=== PATIENT | male | born 1935 | race Caucasian/White ===

== ENCOUNTER → 2017-04-17 | Outpatient (CLI) | payer MEDICARE, OTHER ==
--- NOTE | 2017-04-19 14:54 | MRI ---
EXAM DESCRIPTION: Lumbar Spine w/o Contrast CLINICAL HISTORY: 82 years, Male, LEG WEAKNESS right foot drop COMPARISON: None. FINDINGS: Sagittal and axial sequences. Bone marrow is normal signal characteristics. Conus terminates at about L2. Sagittal images show a bulging disc T11-12 asymmetric to the right impinging slightly on the exiting right T11 root. Benign-appearing right renal cyst is noted upper pole by 3.3 cm. Several small cysts on the left also noted. Multiple hypertrophic changes in the lumbar spine suggesting idiopathic hyperostosis. Bulging anterior disc present at multiple lumbar interspaces particularly L5-S1. T12-L1 shows narrowing with moderate bulging disc slightly asymmetric to left. Moderate bulging disc L1-2 asymmetric to the left with foraminal narrowing. Facet degenerative change perhaps slight impingement on the right lateral recess. At L2-3 narrowing about 2 mm of retrolisthesis with diffuse bulging disc asymmetric to the right with impingement on the exiting right L2 root. Facet degenerative change L3-4 narrowing with diffuse bulging disc extending the exit foramen bilaterally with probable bilateral foraminal narrowing. Facet degenerative change. Mild central stenosis. L4-5 narrowing with diffuse bulging disc and facet degenerative change. Bilateral foraminal narrowing on the right. Probable impingement on the exiting right L4 root L5-S1 narrowing and bulging disc asymmetric to the right with foraminal narrowing. About 1 mm retrolisthesis. IMPRESSION: 1. Multilevel disc disease throughout the lower thoracic prior lumbar spine as discussed above. 2. Changes probably most advanced L4-5 with narrowing and diffuse bulging disc. Bilateral foraminal narrowing. Impingement on the exiting right L4 root 3. Retrolisthesis L2-3 with bulging disc asymmetric to the right impinging on the exiting right L2 root. 4. Bulging disc and facet degenerative change L3-4. Bilateral foraminal narrowing. Mild central stenosis. Other findings as discussed above Electronically signed by: Parth Luna MD 04/19/2017 2:52 PM CDT
--- NOTE | 2017-04-19 15:03 | MRI ---
EXAM DESCRIPTION: Cervical Spine CLINICAL HISTORY: 82 years, Male, RADICULOPATHY right arm tingling COMPARISON: None. FINDINGS: Sagittal and axial sequences. Some motion artifact. Bone marrow is normal signal characteristics except for degenerative-type changes particularly C4-5. Cord is normal signal characteristics. C2-3 unremarkable. At C3-4 narrowing with about 1.5 mm of retrolisthesis. Diffuse bulging disc osteophyte, completely effacing the subarachnoid space and impinging directly on the cord centrally perhaps slightly asymmetric to the right. At C4-5 about 2 mm of retrolisthesis with left lateral protruding disc osteophyte about 2 mm flattening the left-sided thecal sac. At C5-6 left lateral protruding disc osteophyte almost completely effaces the subarachnoid space. Slight left foraminal narrowing. At C6-7 right lateral protruding disc osteophyte about 2 mm flattens right-sided thecal sac. Moderate disc space narrowing and facet degenerative change. At C7-T1 disc spaces within normal limits. IMPRESSION: 1. Severe disc disease in cervical spine from C3-4 through C6-7 2. At C3-4 retrolisthesis with bulging disc osteophyte effacing the subarachnoid space and impinging on the cord centrally and slightly to right. 3. Fairly severe disease C5-6 as well with left lateral protruding disc effacing the subarachnoid space, flattening and left-sided cord and narrowing the left exit foramen. 4. Right lateral protruding disc C6-7 flattens the central and right-sided thecal sac Electronically signed by: Parth Luna MD 04/19/2017 3:01 PM CDT
--- NOTE | 2017-04-19 15:21 | MRI ---
EXAM DESCRIPTION: Brain w/oContrast CLINICAL HISTORY: 82 years, Male, RIGHT SIDE WEAKNESS , tingling right arm right foot drop COMPARISON: None. FINDINGS: Standard triplanar sequences. Diffusion sequence does not show acute infarct. Gradient sequence does not show hemorrhage. Age-appropriate appearance of ventricles and sulci. Some minimal microcystic ischemic changes periventricular white matter. Mild ethmoid sinus mucosal thickening. Small amount of frontal sinus mucosal thickening also noted. IMPRESSION: No acute infarct hemorrhage or mass. Age-related changes Ventricles and sulci. Some minimal microischemic change periventricular white matter within normal limits. Mild paranasal sinus mucosal thickening. Electronically signed by: Parth Luna MD 04/19/2017 3:19 PM CDT
== END | disposition home or self-care (01) ==
LOC: MRI 10:13
PROVIDERS: ATTEND Family Medicine
DX: M21.371 Foot drop, right foot (principal); M50.10 Cervical disc disorder with radiculopathy, unspecified cervical region

== ENCOUNTER 2017-06-12 15:44 | Emergency (ER) | payer MEDICARE, OTHER ==
--- NOTE | 2017-06-12 16:57 | ED.PDOC ---
History of Present Illness - General Chief Complaint: General Stated Complaint: Elevated BP today. S/P neck surgery 06/08 Time Seen by Provider: 06/12/17 15:49 Source: patient Exam Limitations: no limitations - History of Present Illness Initial Comments: The patient is an 82-year-old male presenting to the emergency room secondary to feeling hot and checking his blood pressure at home and finding the systolic in the 170s. He is concerned about the blood pressure. He had no fever here. His blood pressures were lower here. He had recently had a cervical spine fixation by an anterior approach earlier this week and has been going through recovery. He was started on some prednisone today secondary to some swelling. There's been no evidence of infection. He has had some discomfort. He has diuresed significantly since the surgery. He is now back down almost to his baseline weight. He is not short of breath. No syncope. No new discomfort. He is mainly concerned with the blood pressure. Timing/Duration: momentarily Severity: mild Improving Factors: nothing Worsening Factors: nothing Allergies/Adverse Reactions: Allergies Penicillins Allergy (Verified 06/12/17 16:09) Home Medications: Ambulatory Orders Aspirin [Aspirin Adult Low Dose] 81 mg PO DAILY 06/12/17 Cholecalciferol [Vitamin D3] 1,000 unit PO DAILY 06/12/17 HYDROcodone 5MG/APAP 325MG [[place] 5/325] 1 tab PO Q4HR PRN 06/12/17 Lisinopril 10 mg PO DAILY 06/12/17 Lovastatin 20 mg PO DAILY 06/12/17 Methocarbamol [Robaxin] 750 mg PO Q6HR PRN 06/12/17 Prednisone 10 mg PO DAILY 06/12/17 Review of Systems - Review of Systems Constitutional: States: malaise EENTM: States: no symptoms reported Respiratory: States: no symptoms reported Cardiology: States: no symptoms reported Gastrointestinal/Abdominal: States: no symptoms reported, constipation - mild Genitourinary: States: no symptoms reported Musculoskeletal: States: neck pain Skin: States: no symptoms reported Neurological: States: no symptoms reported All other Systems: No Change from Baseline Past Medical History (General) - Patient Medical History Hx Stroke: No Hx Cardiac Disorders: Yes - Bigemeny Hx Congestive Heart Failure: No Hx Hypertension: Yes Hx Diabetes: No Hx Cancer: Yes - Prostate Hx Hepatitis C: No - Vaccination History Hx Tetanus, Diphtheria Vaccination: No Hx Influenza Vaccination: Yes Hx Pneumococcal Vaccination: Yes - Social History Hx Tobacco Use: No Hx Chewing Tobacco Use: No Hx Alcohol Use: Yes - Occas Hx Substance Use: No Hx Substance Use Treatment: No Hx Depression: No Feels Threatened In Home Enviroment: No Feels Threatened In a Relationship: No Hx Physical Abuse: No Hx Emotional Abuse: No Hx Suspected Abuse: No Family Medical History - Family History Grandparents Family History: Unknown Physical Exam - Physical Exam General Appearance: Alert, Anxious, No apparent distress Eye Exam: bilateral normal Ears, Nose, Throat: hearing grossly normal, normal ENT inspection, normal pharynx Neck: other - mild swelling to the anterior right neck around the surgical site. No significant erythema. No undue hheat. The wound does appear to be healing fairly well. 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 He is concerned about his blood pressure. The patient was monitored for a period of time and blood pressures have come down without any additional measures. He does understand his blood pressure will remain a little higher than baseline in this postsurgical state secondary to anxiety, discomfort and the prednisone. Additionally he is to take an over- the-counter stomach medication such as Prilosec, Prevacid or Pepcid while he is taking his additional new medications. Additionally he should take care not to get constipated on the hydrocodone. ER warnings were given. He should follow- up with his primary care doctor and spinal surgeon as previously scheduled. - EKG/XRAY/CT CT Ordered: No CT Interpretation Call Back: No Departure - Departure Clinical Impression: Hypertension Qualifiers: Hypertension type: other secondary hypertension Qualified Code(s): I15.8 - Other secondary hypertension Disposition: Discharge to Home or Self Care Condition: Fair Departure Forms: ED Discharge - Pt. Copy, Patient Portal Self Enrollment Instructions: High Blood Pressure Diet: regular diet Activity: increase activity as tolerated Referrals: Sebastian Hernandez MD [Primary Care Provider] - 1-2 Weeks Home Medications: Ambulatory Orders Aspirin [Aspirin Adult Low Dose] 81 mg PO DAILY 06/12/17 Cholecalciferol [Vitamin D3] 1,000 unit PO DAILY 06/12/17 HYDROcodone 5MG/APAP 325MG [[place] 5/325] 1 tab PO Q4HR PRN 06/12/17 Lisinopril 10 mg PO DAILY 06/12/17 Lovastatin 20 mg PO DAILY 06/12/17 Methocarbamol [Robaxin] 750 mg PO Q6HR PRN 06/12/17 Prednisone 10 mg PO DAILY 06/12/17 Additional Instructions: the patient is an 82-year-old male presenting less than a week after a cervical spine fixation procedure. He is concerned about his blood pressure. The patient was monitored for a period of time and blood pressures have come down without any additional measures. He does understand his blood pressure will remain a little higher than baseline in this postsurgical state secondary to anxiety, discomfort and the prednisone. Additionally he is to take an over- the-counter stomach medication such as Prilosec, Prevacid or Pepcid while he is taking his additional new medications. Additionally he should take care not to get constipated on the hydrocodone. ER warnings were given. He should follow- up with his primary care doctor and spinal surgeon as previously scheduled.
[2017-06-12 17:30] VITALS: BP 144/97; TEMP 98.2; O2SAT 94
== END 2017-06-12 17:25 | disposition home or self-care (01) ==
LOC: ER 15:44
DX: I15.8 Other secondary hypertension (principal); Z85.46 Personal history of malignant neoplasm of prostate; Z98.1 Arthrodesis status; Z88.0 Allergy status to penicillin; Z79.82 Long term (current) use of aspirin; Z79.899 Other long term (current) drug therapy

== ENCOUNTER → 2018-01-06 | Outpatient (CLI) | payer MEDICARE, OTHER | LOC: GMAJ 10:41 | PROVIDERS: ATTEND Family Medicine | DX: Z12.5 Encounter for screening for malignant neoplasm of prostate (principal) ==

== ENCOUNTER → 2018-01-22 | Outpatient (CLI) | payer MEDICARE ==
--- NOTE | 2018-01-23 09:54 | RAD ---
EXAM DESCRIPTION: Pelvis CLINICAL HISTORY: 82 years Male, PAIN IN RIGHT HIP COMPARISON: None. TECHNIQUE: Single AP x-ray view of pelvis and hips. FINDINGS: Degenerative changes are seen in the lower lumbar spine with severe disc space narrowing. Sacrum appears intact with no fracture. No fracture of the bones of the pelvic ring. No proximal femoral fracture or hip dislocation. Degenerative narrowing of the hip joints is seen medially. IMPRESSION: Negative for fracture. Electronically signed by: Sunny Krause MD 01/23/2018 9:52 AM CDT
--- NOTE | 2018-01-23 09:56 | RAD ---
EXAM DESCRIPTION: Knee,Right Complete CLINICAL HISTORY: 82 years, Male, PAIN IN RIGHT KNEE COMPARISON: None TECHNIQUE: Four views of the right knee with standing views FINDINGS: No fracture or dislocation. Bones appear normally mineralized with normal trabecular pattern. Narrowed appearance of lateral more than medial compartments on frontal view. Prominent lateral joint line spurring with spurring of the tibial spines. Lateral view shows normal position of the patella. There is narrowing of the patellofemoral joint with posterior patellar spurring and anterosuperior enthesopathy. Small suprapatellar knee joint effusion is present. Normal contour of quadriceps and patellar tendons. Ossific densities posterior to the joint could be loose bodies within a Acosta's cyst. No abnormal patellar tilt or subluxation on patellar sunrise view. Prominent posterior patellar spurring with mild anterior femoral trochlear spurring. IMPRESSION: Degenerative changes as described. Electronically signed by: Sunny Krause MD 01/23/2018 9:54 AM CDT
== END ==
LOC: RAD 08:53
PROVIDERS: ATTEND Orthopaedic Surgery
DX: M25.561 Pain in right knee (principal); M25.551 Pain in right hip

== ENCOUNTER 2019-09-14 06:35 | Emergency (ER) | payer MEDICARE, OTHER ==
[2019-09-14 06:55] VITALS: TEMP 97.6
--- NOTE | 2019-09-14 07:40 | RAD ---
EXAM DESCRIPTION: Chest,2 Views CLINICAL HISTORY: 84 years Male, SOB COMPARISON: None. Findings: Two views Cardiac silhouette and pulmonary vasculature are within normal limits. Atherosclerotic plaque in the thoracic aorta. No pneumothorax. No pleural effusion. Linear left basilar airspace disease. No acute osseous abnormality. Soft tissues are unremarkable. IMPRESSION: Linear left basilar airspace disease, atelectasis or pneumonia. Recommend repeat chest radiographs in six weeks. Electronically signed by: Angelito Dennis MD 09/14/2019 7:38 AM [facility]
--- NOTE | 2019-09-14 07:53 | ED.PDOC ---
History of Present Illness - General Chief Complaint: Respiratory Problem Stated Complaint: SOB x's 2 wks worse the "past few days", irreg HR Time Seen by Provider: 09/14/19 07:46 Source: patient, RN notes reviewed, Vital Signs reviewed, family - Exam Limitations: no limitations - History of Present Illness Initial Comments: patient is an 84-year-old white male who presents with complaints of worsening shortness of breath. Patient states this is ongoing and worsening over the last 2 weeks. The shortness of breath is worse with exertion.additionally he is more short of breath when he lies down flat. The shortness of breath is improved with rest or upright position. Complains of significant sinus drainage over the last 2 weeks. Patient does state he has some chest tightness with exertion, but no radiation of this tightness nor numbness nor nausea or vomiting. Additionally he does not have any diaphoresis.the shortness of breath is moderate and a chest tightness is. Patient denies any headaches, blurry vision, dizziness, shortness of breath, nausea, vomiting, diarrhea, weakness. Severity: moderate Activities at Onset: activity Possible Cause: no prior episodes Improving Factors: rest Worsening Factors: movement Associated Symptoms: denies symptoms Respiratory Risk Factors: no cause identified Allergies/Adverse Reactions: Allergies Penicillins Allergy (Verified 09/14/19 06:55) Home Medications: Ambulatory Orders Aspirin [Aspirin Adult Low Dose] 81 mg PO DAILY 06/12/17 Cholecalciferol [Vitamin D3] 1,000 unit PO DAILY 06/12/17 HYDROcodone 5MG/APAP 325MG [[place] 5/325] 1 tab PO Q4HR PRN 06/12/17 Lisinopril 10 mg PO DAILY 06/12/17 Lovastatin 20 mg PO DAILY 06/12/17 Methocarbamol [Robaxin] 750 mg PO Q6HR PRN 06/12/17 Prednisone 10 mg PO DAILY 06/12/17 Albuterol Sulfate [Ventolin Hfa] 108 mcg IN Q6H #2 aer 09/14/19 Prednisone 50 mg PO DAILY #5 tab 09/14/19 levoFLOXacin [Levaquin] 500 mg PO DAILY #10 tab 09/14/19 Review of Systems - Review of Systems Constitutional: States: no symptoms reported, see HPI EENTM: States: no symptoms reported Respiratory: States: see HPI, cough, orthopnea, short of breath. Denies: stridor, wheezing Cardiology: States: see HPI, chest pain, palpitations. Denies: edema, syncope Gastrointestinal/Abdominal: States: no symptoms reported Genitourinary: States: no symptoms reported Musculoskeletal: States: no symptoms reported Skin: States: no symptoms reported Neurological: States: no symptoms reported Endocrine: States: no symptoms reported Hematologic/Lymphatic: States: no symptoms reported All other Systems: Reviewed and Negative Past Medical History (General) - Patient Medical History Hx Seizures: No Hx Stroke: No Hx Dementia: No Hx Asthma: No Hx of COPD: No Hx Cardiac Disorders: Yes - [place]y Hx Congestive Heart Failure: No Hx Pacemaker: No Hx Hypertension: Yes Hx Thyroid Disease: No Hx Diabetes: No Hx Gastroesophageal Reflux: No Hx Renal Disease: No Hx Cancer: Yes - Prostate Hx of HIV: No Hx Hepatitis C: No Hx MRSA: No - Vaccination History Hx Tetanus, Diphtheria Vaccination: Yes Hx Influenza Vaccination: Yes Hx Pneumococcal Vaccination: Yes - Social History Hx Tobacco Use: No Hx Chewing Tobacco Use: No Hx Alcohol Use: Yes - Occas Hx Substance Use: No Hx Substance Use Treatment: No Hx Depression: No Hx Physical Abuse: No Hx Emotional Abuse: No Hx Suspected Abuse: No Family Medical History - Family History Grandparents Family History: Unknown Physical Exam - Physical Exam General Appearance: Alert, Comfortable, Well Developed, Well Groomed, Well Hydrated, Well Nourished Eyes, Ears, Nose, Throat Exam: PERRL/EOMI, normal ENT inspection, pharynx normal Neck: non-tender, supple, normal inspection Respiratory: chest non-tender, lungs clear, normal breath sounds, no respiratory distress, no accessory muscle use Cardiovascular/Chest: normal peripheral pulses, regular rate, rhythm, no edema, no gallop, no JVD, no murmur Peripheral Pulses: radial,right: 2+, radial,left: 2+ Gastrointestinal/Abdominal: normal bowel sounds, non tender, soft, no organomegaly, no pulsatile mass Extremity: normal range of motion, non-tender, normal inspection, no pedal edema, no calf tenderness, pedal edema - trace to mid shins bilaterally equal. 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 09/14/19 09:24 Patient was markedly improved after breathing treatment. No elevated white count but chest x-ray shows versus pneumonia. I suspect this is pneumonia secondary to his decreased oxygen saturation with activity. He has O2 sats of 95% on room air after the neb treatment. Plan on discharge home with prescr iption for antibiotics, an inhaler, and steroids. Additionally patient has been provided with an incentive spirometer and to follow up with his PCP in 2-3 days. I discussed this plan of care with the patient and his and they voice understanding and agreement. 09/14/19 09:26 Eliot Dumont M.D. #[id number] - Results/Orders Results/Orders: EXAM DESCRIPTION: Chest,2 Views CLINICAL HISTORY: 84 years Male, SOB COMPARISON: None. Findings: Two views Cardiac silhouette and pulmonary vasculature are within normal limits. Atherosclerotic plaque in the thoracic aorta. No pneumothorax. No pleural effusion. Linear left basilar airspace disease. No acute osseous abnormality. Soft tissues are unremarkable. IMPRESSION: Linear left basilar airspace disease, atelectasis or pneumonia. Recommend repeat chest radiographs in six weeks. Electronically signed by: Angelito Dennis MD 09/14/2019 7:38 AM EKG 14 September 2019 at 0642 hrs.: Normal sinus rhythm at 76 bpm, normal axis deviation, nonspecific ST changes, abnormal EKG. No comparison EKG. 09/14/19 07:15 EKG STAT Laboratory Results - last 24 hr 09/14/19 09/14/19 09/14/19 06:45 06:45 06:45 WBC 8.6 RBC 4.83 Hgb 15.0 Hct 45.1 MCV 93.4 MCH 31.0 MCHC 33.1 RDW 13.3 Plt Count 183 MPV 7.4 Absolute Neuts (auto) 6.20 Absolute Lymphs (auto) 1.30 Absolute Monos (auto) 0.70 Absolute Eos (auto) 0.40 Absolute Basos (auto) 0.10 Neutrophils % 71.6 Lymphocytes % 15.3 L Monocytes % 8.2 Eosinophils % 4.3 Basophils % 0.6 Sodium 137 Potassium 3.8 Chloride 102 Carbon Dioxide 25 Anion Gap 13.8 BUN 17 Creatinine 0.99 BUN/Creatinine Ratio 17.2 Random Glucose 128 H Serum Osmolality 277.0 Calcium 9.2 Total Bilirubin 0.8 AST 20 ALT 15 Alkaline Phosphatase 63 Troponin I < 0.02 B-Natriuretic Peptide Serum Total Protein 7.0 Albumin 4.2 Globulin 2.8 Albumin/Globulin Ratio 1.5 09/14/19 06:45 WBC RBC Hgb Hct MCV MCH MCHC RDW Plt Count MPV Absolute Neuts (auto) Absolute Lymphs (auto) Absolute Monos (auto) Absolute Eos (auto) Absolute Basos (auto) Neutrophils % Lymphocytes % Monocytes % Eosinophils % Basophils % Sodium Potassium Chloride Carbon Dioxide Anion Gap BUN Creatinine BUN/Creatinine Ratio Random Glucose Serum Osmolality Calcium Total Bilirubin AST ALT Alkaline Phosphatase Troponin I B-Natriuretic Peptide 34.2 Serum Total Protein Albumin Globulin Albumin/Globulin Ratio Departure - Departure Clinical Impression: Hypoxemia Pneumonia Qualifiers: Pneumonia type: due to unspecified organism Laterality: left Lung location: lower lobe of lung Qualified Code(s): J18.9 - Pneumonia, unspecified organism Time of Disposition: : Disposition: Discharge to Home or Self Care Condition: Good Departure Forms: ED Discharge - Pt. Copy, Patient Portal Self Enrollment Instructions: DI for Pneumonia -- Adult, DI for Hypoxia Diet: resume usual diet Activity: increase activity as tolerated Referrals: Sebastian Hernandez MD [Primary Care Provider] - 1-5 Days Prescriptions: Albuterol Sulfate [Ventolin Hfa] 108 mcg IN Q6H #2 aer levoFLOXacin [Levaquin] 500 mg PO DAILY #10 tab Prednisone 50 mg PO DAILY #5 tab Home Medications: Ambulatory Orders Aspirin [Aspirin Adult Low Dose] 81 mg PO DAILY 06/12/17 Cholecalciferol [Vitamin D3] 1,000 unit PO DAILY 06/12/17 HYDROcodone 5MG/APAP 325MG [[place] 5/325] 1 tab PO Q4HR PRN 06/12/17 Lisinopril 10 mg PO DAILY 06/12/17 Lovastatin 20 mg PO DAILY 06/12/17 Methocarbamol [Robaxin] 750 mg PO Q6HR PRN 06/12/17 Prednisone 10 mg PO DAILY 06/12/17 Albuterol Sulfate [Ventolin Hfa] 108 mcg IN Q6H #2 aer 09/14/19 Prednisone 50 mg PO DAILY #5 tab 09/14/19 levoFLOXacin [Levaquin] 500 mg PO DAILY #10 tab 09/14/19
[2019-09-14] MEDS: IPRATROPIUM/ALBUTEROL 3 ML VIAL NEB ONE (08:12)
[2019-09-14 09:48] VITALS: BP 128/97; O2SAT 96
== END 2019-09-14 09:48 | disposition home or self-care (01) ==
LOC: ER 06:35
DX: J18.9 Pneumonia, unspecified organism (principal); R09.02 Hypoxemia; R07.89 Other chest pain; I10 Essential (primary) hypertension; Z85.46 Personal history of malignant neoplasm of prostate; Z79.899 Other long term (current) drug therapy; Z79.82 Long term (current) use of aspirin; Z88.0 Allergy status to penicillin
CPT/HCPCS: 36415; 71046; 80053; 83880; 84484; 85025; 93005; 94640; J7620

== ENCOUNTER 2019-11-07 12:00 | Observation (INO) | payer MEDICARE, OTHER ==
--- NOTE | 2019-11-07 13:00 | HP ---
SUPERVISING PHYSICIAN: Thierno De La Rosa MD CHIEF COMPLAINT: Left thigh pain with DVT on Doppler. HISTORY OF PRESENT ILLNESS: Mr. Sanchez is an 85-year-old male patient with a history of type 2 diabetes mellitus, controlled, hypertension. He was being seen in Dr. Hernandez' office today for some leg pain and was referred for an ultrasound of the left leg. On completion of that study, a large thrombus was noted extending from the left common femoral vein to the left posterior tibial vein. He was also having some shortness of breath which he reports has been going on and off since August when he had an episode of pneumonia. Laboratory studies were completed with renal function showing creatinine 1.0, white count normal at 9,200 with no left shift. Coagulation studies showed normal PT and PTT. Given his symptomatology and findings on the Doppler study, a CT of the chest was completed to rule out pulmonary embolism. Per radiologic interpretation, there was note of partially occlusive thrombus in the distal portion of the right main pulmonary artery extending to the right upper lobe and middle lobe subsegmental branches. The patient was hemodynamically stable with blood pressure 125/80, heart rate 85, saturation 95% on room air. Given the extensive findings of the PE and DVT on his left leg, he was started on Lovenox. We will give him a couple doses of Lovenox and further evaluate in the morning for a scan of his abdomen and pelvis. He was placed in observation in stable condition for close monitoring with cardiac telemetry and vital signs awaiting initiation of Eliquis. PAST MEDICAL HISTORY: 1. Hyperlipidemia. 2. Hypertension. 3. Arthritis. 4. Type 2 diabetes mellitus, diet controlled. PAST SURGICAL HISTORY: 1. Right knee arthroscopy with torn meniscus in 2016. 2. Skin biopsy of left ear with pre-cancer. 3. Cervical spine surgery in 2017. 4. Tonsillectomy and adenoidectomy as a child. 5. Bilateral cataracts. HOME MEDICATIONS: 1. Lovastatin 20 mg at bedtime. 2. Lisinopril 20 mg at bedtime. 3. Amlodipine 5 mg at bedtime. 4. Vitamin D3 1000 units daily. 5. [place] 5/325 1 q.4h. as needed for pain. 6. Ventolin inhaler 108 mcg inhaled q.8h. as needed. ALLERGIES: PENICILLINS. FAMILY HISTORY: Father at age 64 with complications of chronic obstructive pulmonary disease. Mother at age 98 from advanced age. SOCIAL HISTORY: The patient is . He lives in [place], [place]. He is a retired drafter (cad) electrical. He has 2 children. He quit smoking in 1962 and drinks wine on rare occasions. He denies any illicit drug use. REVIEW OF SYSTEMS: CONSTITUTIONAL: Negative for any fevers, general malaise, weakness. HEENT: Negative for headaches, sore throats, earaches, nasal congestion, vision changes. CARDIOVASCULAR: Negative for chest pain, palpitations, dyspnea or syncopal episodes. RESPIRATORY: Denies coughing, wheezing. He does have some episodes of shortness of breath. GASTROINTESTINAL: Negative for nausea, vomiting, diarrhea, constipation or abdominal pain. GENITOURINARY: Negative for dysuria, hematuria, polyuria. MUSCULOSKELETAL: As noted in history of present illness. NEUROLOGIC: Denies ataxia, seizures, motor or sensory deficits, no paresthesias. HEMATOLOGIC: Denies easy bruising, unexplained bleeding or transfusion reactions. SKIN: Denies any unexplained changes, lesions or rashes. PHYSICAL EXAMINATION: VITAL SIGNS: Temperature 98, pulse 74, blood pressure 125/80, respirations 18, saturation 95% on room air. GENERAL: The patient is resting comfortably, appears to be in no acute distress. He is alert. HEENT: Tympanic membranes clear bilaterally. Oropharynx is pink, moist without any lesions. NECK: Supple, nontender with full range of motion. No jugular venous distention noted. RESPIRATORY: Lungs clear to auscultation bilaterally without any rhonchi, wheezes or rales. CARDIOVASCULAR: Regular rate and rhythm without any appreciable murmurs, gallops, or rubs. ABDOMEN: Soft, nontender. Positive bowel sounds. EXTREMITIES: Tenderness over the left thigh area. On comparison to the right, it is a little bit enlarged, but no obvious edema or erythema. Distal pulses strong. Capillary refill brisk. He does have some pain in the left lower calf as well. NEUROLOGIC: The patient is alert and oriented times three. Cranial nerves II- XII are grossly intact. Facial features are symmetrical. Extraocular movements are within normal limits. There is no nystagmus noted. SKIN: Warm, pink and dry. LABORATORY: CBC showed white count 9,200, hemoglobin 13.5, hematocrit 39.7, platelet count 281,000, differential without a left shift. Coagulation studies showed normal PT, PTT. Chemistry showed normal electrolytes with BUN 23, creatinine 1.02. Liver functions within normal limits. RADIOLOGY: As noted, lower extremity Doppler of the left leg per radiologic interpretation showed a extensive thrombus ranging from the left common femoral vein to the left posterior tibial vein. This was followed by CT of the chest and per radiologic interpretation showed partial occlusive thrombus identified in the distal portion of the right pulmonary artery extending to the right upper lobe and middle lobe and subsegmental branches. Abdominopelvic CT without contrast is pending. X-ray of the left femur without any acute findings. ASSESSMENT: 1. Extensive deep venous thrombosis involving the left common femoral vein extending to the left posterior tibial vein, etiology uncertain, unprovoked. 2. Pulmonary embolus involving the distal portion of the right pulmonary artery extending to the right upper lobe and middle subsegmental branches with positive DVT studies as in #1, etiology likely secondary to #1, hemodynamically stable. 3. Diabetes mellitus, type 2, diet controlled. 4. History of hypertension. 5. Hyperlipidemia. 6. Arthritis. PLAN: Mr. Sanchez is going to be placed in [facility] for telemetry monitoring and initiation of anticoagulation in the form of Lovenox 1 mg per kg q.12h. I plan to transition him to Eliquis in the morning after we get an additional study of his pelvis and abdomen to fully rule out any additional thrombus in the pelvis region given his upper leg thrombus and pain. He will be on DVT treatment again with Lovenox. We will put him on sliding scale insulin per protocol. We will resume his medications once updated and verified. We anticipate his length of stay to be 1 to 2 days probably discharging tomorrow after the study of his pelvis and abdomen on CT without contrast. He will transition to Eliquis prior to discharge and will need to followup with Dr. Jackson who he has an appointment with on Thursday afternoon. He did have a nuclear stress test and echocardiogram done by Dr. Jackson and those results are pending. Until the patient can transition to outpatient management, we will continue to monitor and treat as needed. #[id number] [facility]
--- NOTE | 2019-11-07 13:29 | US ---
EXAM DESCRIPTION: Venous,Lower Extremity LT: ULTRASOUND. CLINICAL HISTORY: LOCALIZED EDEMA COMPARISON: None Available. TECHNIQUE: Carr-scale and doppler sonographic evaluation of the deep venous system of the left lower extremity. FINDINGS: Doppler evaluation shows abnormal decreased color flow and abnormal phasic waveform and no augmentation of the left common femoral vein, femoral vein, popliteal vein, peroneal, and posterior tibial vein. These deep veins were noncompressible with the transducer and echogenic thrombus seen in the veins. IMPRESSION: 1. Duplex ultrasound evaluation of the left lower extremity deep venous system showing extensive thrombosis from the left common femoral vein to the left posterior tibial vein. 2. The financial intern notified the referring physician of these findings by phone immediately after the procedure was concluded. The patient was transported to the physician's office. Electronically signed by: Padilla Lo MD 11/07/2019 1:27 PM [facility]
[2019-11-07] MEDS ORDERED: SODIUM CHLORIDE 0.9% (FLUSH) 10 ML SYG IV PRN (13:46)
[2019-11-07] MEDS ORDERED: DEXTROSE 10% 500ML IVPB PRN (13:46)
[2019-11-07] MEDS ORDERED: MAGNESIUM HYDROXIDE 30 ML UD PO PRN (13:46)
[2019-11-07] MEDS ORDERED: ALUM & MAG HYDROX-SIMETHICONE 30 ML UD PO PRN (13:46)
[2019-11-07] MEDS ORDERED: ONDANSETRON INJ 4 MG/2 ML VIAL IV PRN (13:46)
[2019-11-07] MEDS ORDERED: GLUCAGON INJ 1 MG VIAL SUBCU PRN (13:46)
[2019-11-07] MEDS ORDERED: ACETAMINOPHEN 325 MG TAB PO PRN (13:46)
[2019-11-07] MEDS ORDERED: IV SET AND CAP CHANGE INJ INJ SCH (14:00)
[2019-11-07] MEDS ORDERED: ENOXAPARIN SODIUM 100 MG/ML SYG SUBCU ONE ×2 (15:02→19:05)
--- NOTE | 2019-11-07 15:28 | RAD ---
EXAM DESCRIPTION: Femur,Left CLINICAL HISTORY: 84 years Male, left hip and thigh pain with DVT COMPARISON: None. Findings: Four views/radiographs No acute fracture or dislocation. No focal soft tissue swelling. Mild degenerative changes about the hip and knee. Normal bone mineralization. IMPRESSION: No acute osseous abnormality. Electronically signed by: Angelito Dennis MD 11/07/2019 3:26 PM [employer] SYSTEM[employer] ENGINEER
--- NOTE | 2019-11-07 15:49 | CT ---
EXAM DESCRIPTION: CTA Chest CLINICAL HISTORY: 84 years Male, LLE DVT; SOB COMPARISON: None available TECHNIQUE: Contiguous thin section axial images through the chest were obtained after the administration of intravenous contrast. MIPS, Sagittal and coronal reconstructions were reviewed. FINDINGS: The visualized thyroid gland and supraclavicular region appear normal. Few subcentimeter lymph nodes are noted in the mediastinum. Trachea is midline and the central tracheobronchial tree is patent. Mild atelectasis is noted in the bilateral lung bases. No acute consolidation. No nodules or masses are visualized. No evidence of pleural effusions. The heart is normal in size with no pericardial effusion. The visualized aorta is nonaneurysmal with moderate atherosclerosis. The superior vena cava is normal in size and caliber.No significant coronary artery atherosclerosis. Partially occlusive thrombus is identified in the distal portion of the right main pulmonary artery extending into the right upper lobe and middle lobe subsegmental branches. The esophagus appears normal throughout its visualized length. Few simple cysts are identified in the right kidney. Visualized upper abdomen otherwise appears normal. Moderate degenerative changes are identified throughout the visualized spine. IMPRESSION: Partially occlusive thrombus is identified in the distal portion of the right main pulmonary artery extending into the right upper lobe and middle lobe subsegmental branches. This exam was performed according to our departmental dose-optimization program, which includes automated exposure control, adjustment of the mA and/or kV according to patient size and/or use of iterative reconstruction technique. Electronically signed by: Kiki Bishop MD 11/07/2019 3:47 PM [facility]
[2019-11-07] MEDS: HYDROcodone 5MG/APAP 325MG 1 EA TAB PO PRN ×2 (16:05→23:04)
[2019-11-07] MEDS: INSULIN LISPRO 100 UNITS/ML PEN SUBCU SCH ×3 (16:28→21:26)
[2019-11-07] MEDS ORDERED: amLODIPine BESYLATE 5 MG TAB PO SCH (21:00)
[2019-11-07] MEDS ORDERED: NON-FORMULARY MEDICATION 1 EA MIS (Lisinopril [Lisinopril] 20 MG) PO SCH (21:00)
[2019-11-07] MEDS ORDERED: NON-FORMULARY MEDICATION 1 EA MIS (Lovastatin [Lovastatin] 20 MG) PO SCH (21:00)
[2019-11-07] MEDS ORDERED: LISINOPRIL 10 MG TAB ONE (21:08)
[2019-11-08] MEDS ORDERED: ENOXAPARIN SODIUM 100 MG/ML SYG SUBCU SCH (06:00)
--- NOTE | 2019-11-08 06:52 | CT ---
EXAM: CT abdomen and pelvis without contrast. INDICATION: Large DVT within the left upper leg, pain. TECHNIQUE: Contiguous axial CT images of the abdomen and pelvis. Intravenous contrast: Absent. Oral contrast: Absent. DLP 1128 mGy-cm. This exam was performed according to our departmental dose-optimization program, which includes automated exposure control, adjustment of the mA and/or kV according to patient size and/or use of iterative reconstruction technique. COMPARISON: Ultrasound dated 11/07/2019. FINDINGS: Lower chest: Partially imaged. Lung bases: Unremarkable. Cardiac apex: Unremarkable. Solid abdominal viscera: Limited by lack of intravenous contrast. Liver: Unremarkable. Gallbladder: Unremarkable. Pancreas: Unremarkable. Spleen: Unremarkable. Adrenal glands: Unremarkable. Right kidney: No urolithiasis or hydronephrosis. Contains multiple cysts. Left kidney: No urolithiasis or hydronephrosis. Contains multiple cysts. Urinary bladder: Contains some contrast. Abdominal aorta: Atherosclerotic calcifications Peritoneal: Free fluid: None. Free air: None. Other: No pathologic sized lymph nodes in the upper abdomen. DVT is visualized in the left common femoral and left femoral veins. There is mild adjacent stranding around the left femoral veins. No evidence of a DVT on this noncontrast exam along the visualized portions of the right femoral vein. Bowel: Stomach: Unremarkable. Small bowel: Unremarkable. Appendix: Unremarkable. Colon: Diverticulosis without evidence of diverticulitis. Rectum: Unremarkable. Prostate: Unremarkable. Bones: Multilevel spondylosis. IMPRESSION: Positive for DVT within the left common femoral and left femoral veins. Further evaluation of deep venous systems is limited on this noncontrast exam. Diverticulosis without evidence of diverticulitis. Electronically signed by: Nadeem Granado MD 11/08/2019 6:50 AM [employer]CRA[employer] TECHNICIAN
[2019-11-08] MEDS: INSULIN LISPRO 100 UNITS/ML PEN SUBCU SCH (08:08)
[2019-11-08] MEDS ORDERED: CHOLECALCIFEROL 2,000 IU TAB PO SCH (09:00)
--- NOTE | 2019-11-08 11:46 | DS ---
SUPERVISING PHYSICIAN: Thierno De La Rosa MD DISCHARGE DIAGNOSIS: 1. Extensive deep venous thrombosis involving the left common femoral vein extending to the left posterior tibial vein, etiology uncertain, unprovoked. 2. Pulmonary embolus involving the distal portion of the right pulmonary artery extending to the right upper lobe and middle subsegmental branches with positive DVT studies as in #1, etiology likely secondary to #1, hemodynamically stable. 3. Diabetes mellitus, type 2, diet controlled. 4. History of hypertension. 5. Hyperlipidemia. 6. Arthritis. HISTORY OF PRESENT ILLNESS: This is an 85-year-old male patient with a history of type 2 diabetes mellitus and controlled hypertension. He was being seen in Dr. Hernandez' office today for some leg pain. He was actually referred to the hospital for an ultrasound of the left leg. On completion of that study, a large thrombus was noted extending from the left common femoral vein to the left posterior tibial vein. He was also having some shortness of breath which he reports has been going off and on since August when he had an episode of pneumonia. Laboratory studies were completed with renal function showing creatinine 1.0, white count normal at 9,200 with no left shift. Coagulation studies showed normal PT and PTT. Given his symptomatology and findings on the Doppler study, a CT of the chest was completed to rule out pulmonary embolism. Per radiologic interpretation, there was note of partially occlusive thrombus in the distal portion of the right main pulmonary artery extending to the right upper lobe and middle lobe subsegmental branches. The patient was hemodynamically stable with blood pressure 125/80, heart rate 85, saturation 95% on room air. He was admitted to the hospital in observation and given Lovenox. He also had a scan of his abdomen to further evaluate his abdomen and pelvis. HOSPITAL COURSE: He was placed on telemetry monitoring as well as given Lovenox 1 mg per kg every 12 hours. Today, he was transitioned to Eliquis and he will take his first dose at home. He was placed on sliding scale insulin per protocol. His home medications were restarted. He has an appointment with Dr. Jackson this afternoon that he will keep. He had no complaints of chest pain, shortness of breath. His vital signs are stable and he will be discharged home today in stable condition. LABORATORY: His laboratory is as per history of present illness. RADIOLOGY: His abdomen and pelvis CT is positive for DVT within the left common femoral and left femoral veins. Further evaluation of the deep venous symptoms is limited on this non-contrast exam. Diverticulosis without evidence of of diverticulitis. All other radiology reports are per the history of present illness. DISCHARGE PLAN: The patient will be discharged home in stable condition. He is to resume his previous diabetic diet as well as increase his activity as tolerated. He is to followup with Dr. Jackson this afternoon as scheduled. He has a hospital followup appointment with Dr. Hernandez on 11/14/19 at 10:45 AM. I have done extensive teaching on his anticoagulation therapy as well as DVT, pulmonary emboli and diabetes. He will be on Eliquis 10 mg b.i.d. for one week and then he will decrease his dosage to 5 mg p.o. b.i.d. He is also to continue his previous home medications. He is to return to the hospital or followup with Dr. Hernandez for any problems or complications. DISCHARGE MEDICATIONS: 1. Vitamin D. 2. Lovastatin. 3. Lisinopril. 4. Hydrocodone. 5. Amlodipine. 6. Albuterol HFA. 7. Eliquis. [facility][id number]
[2019-11-08 12:51] VITALS: BP 150/70; TEMP 98.4; O2SAT 97
[2019-11-08] MEDS ORDERED: SIMVASTATIN 10 MG TAB PO SCH (21:00)
[2019-11-08] MEDS ORDERED: LISINOPRIL 10 MG TAB PO SCH (21:00)
[2019-11-08] MEDS ORDERED: APIXABAN 5 MG TAB PO SCH (21:00)
== END 2019-11-08 12:15 | disposition home or self-care (01) ==
LOC: US 12:00 → MS 12:59 → INTOOBSV 12:59
PROVIDERS: ADMIT Nurse Practitioner Family; ATTEND Nurse Practitioner Acute Care
DX: I82.412 Acute embolism and thrombosis of left femoral vein (principal); I26.99 Other pulmonary embolism without acute cor pulmonale; E11.9 Type 2 diabetes mellitus without complications; I10 Essential (primary) hypertension; E78.5 Hyperlipidemia, unspecified; M19.90 Unspecified osteoarthritis, unspecified site; N28.1 Cyst of kidney, acquired; I70.0 Atherosclerosis of aorta; K57.30 Diverticulosis of large intestine without perforation or abscess without bleeding; Z79.899 Other long term (current) drug therapy; Z88.0 Allergy status to penicillin; Z87.891 Personal history of nicotine dependence
CPT/HCPCS: 96372 ×2; J1650 ×2; 80053; 82948 ×4; 36415 ×2; 85025; 85730; 85610; 83880; 36416 ×3; 73551; 71275; 74176; 93971; 94760 ×2; G0378

== ENCOUNTER → 2020-04-26 | Outpatient (CLI) | payer MEDICARE, OTHER | LOC: GMAJ 10:40 | PROVIDERS: ATTEND Family Medicine | DX: D53.9 Nutritional anemia, unspecified (principal) ==

== ENCOUNTER → 2020-06-29 | Outpatient (CLI) | payer MEDICARE, OTHER | LOC: GMAJ 10:42 | PROVIDERS: ATTEND Family Medicine | DX: E53.8 Deficiency of other specified B group vitamins (principal); D53.9 Nutritional anemia, unspecified ==

== ENCOUNTER → 2020-11-20 | Outpatient (CLI) | payer MEDICARE, OTHER | LOC: GMAJ 17:08 | PROVIDERS: ATTEND Family Medicine | DX: C61 Malignant neoplasm of prostate (principal); E11.9 Type 2 diabetes mellitus without complications; E78.2 Mixed hyperlipidemia; I10 Essential (primary) hypertension ==

== ENCOUNTER → 2020-11-28 | Outpatient (CLI) | payer MEDICARE, OTHER ==
--- NOTE | 2020-11-28 16:00 | RAD ---
EXAM DESCRIPTION: UGI: Rad-Fluoroscopy. CLINICAL HISTORY: Other dysphagia COMPARISON: CT scan abdomen and pelvis October 2019. None TECHNIQUE: Fluoroscopy performed by Dr. Lo The patient swallowed barium pill with water. The patient swallowed gas-producing granules, water, and heavy density barium under fluoroscopic visualization. The images were obtained with the patient standing and horizontal.. Patient drank medium density barium through a straw in the semi-prone position. 95 fluoroscopic cine loop images. 14 single static fluoroscopic images. Total fluoroscopy time was 3.7 minutes. DAP: 26.28 Gy-cm2.. . Dose 128.4 mGy. FINDINGS: Patient swallowed the barium pill with fluoroscopic visualization. Minimal delay at the gastroesophageal junction but not in the oropharynx, hypopharynx, or proximal esophagus. Oropharynx, hypopharynx, and larynx-glottis: On the images of the oropharynx and hypopharynx, the ACDF hardware at C4-C6 partially obscures detail. No premature spillage into the vallecula from the oropharynx. Symmetric swallowing mechanism. Second swallow required to clear the oropharynx. No obvious intrinsic lesion and no extrinsic mass effect. The hardware is not impinging the posterior oropharynx or glottis. No laryngeal penetration or aspiration when standing, but silent laryngeal penetration, without aspiration, when drinking thin barium in the semiprone position. Patient did not cough. Esophagus: No intrinsic or extrinsic lesion in the esophagus. Small sliding hiatal hernia. Minimal gastroesophageal reflux. Primary peristaltic wave travels almost the entire length of the esophagus when patient is upright. When patient supine, barium in the lower esophagus reflexes into the upper esophagus with no significant peristalsis visualized. Stomach and duodenum: Moderate amount of barium coating of the stomach. Well distended with gas and contrast. No intrinsic lesions. No mass effect. No gastroduodenal obstruction. Duodenal bulb well distended. Duodenal sweep well visualized. No intrinsic lesions and no mass effect. Rapid transit from the stomach into the duodenum and small bowel. IMPRESSION: 1. Silent laryngeal penetration when drinking thin barium in semiprone position. No penetration standing and no aspiration in either position. No coughing. Swallowing mechanism otherwise appears physiologic and symmetric. No mass effect. ACDF hardware not impinging the posterior oropharynx or hypopharynx. 2. Small sliding hiatal hernia more prominent with patient supine. Minimal gastroesophageal reflux. Decreased peristalsis with intraesophageal reflux when supine. No intrinsic or extrinsic esophageal lesions. 3. Stomach and duodenum are otherwise unremarkable. Electronically signed by: Padilla Lo MD 11/28/2020 3:58 PM [facility]
== END ==
LOC: RAD 09:06
PROVIDERS: ATTEND Family Medicine
DX: R13.19 Other dysphagia (principal); K44.9 Diaphragmatic hernia without obstruction or gangrene; K21.9 Gastro-esophageal reflux disease without esophagitis